=== PATIENT | female | born 1955 | race Caucasian/White ===

== ENCOUNTER 2016-07-02 21:55 | Emergency (ER) | payer OTHER ==
[~2016-07-02] VITALS: Ht 162.6 cm; Wt 87.0 kg
[~2016-07-02 21:55] MED LIST: ABIL5TAB6 PO; ALBU8I INH; DEPA250T; GLUCTAB PO; LEVO75TA3 PO; SERO50TA4 PO; ZITH250T PO
[2016-07-02 21:57] VITALS: BP 183/80; PULSE 84; RESP 14; TEMP 98; O2SAT 95
[2016-07-02] MEDS ORDERED: ACETAMINOPHEN/HYDROcodone 325 MG/5 MG TAB PO ONE (22:30)
--- NOTE | 2016-07-02 22:44 | PD ---
HPI Chief Complaint: Injury Time Seen by Provider: 22:42 Travel History International Travel<30 days: No Contact w/Intl Traveler<30days: No Traveled to known affect area: No History of Present Illness HPI 60-year-old white female presents emergent department with complains of right ankle pain. She states that she had an inversion injury prior to arrival. Pain is moderate. Worse with weightbearing. Some relief with elevation. No injury to her head, neck or back. No numbness, tingling or weakness. PFSH Past Medical History Asthma: Yes Bipolar Disorder: Yes Anxiety: Yes Depression: Yes Cancer: Yes (THYROID) Cardiovascular Problems: Yes (HTN) High Cholesterol: Yes COPD: Yes Diabetes: Yes Diminished Hearing: No Gastrointestinal Disorders: Yes Hypertension: Yes Musculoskeletal: No Neurologic: No Respiratory: Yes (BRONCHITIS) Thyroid Disease: Yes PNEUMOCCOCAL Vaccine (Year): 2 Menopausal: Yes Past Surgical History Abdominal Surgery: No Cardiac Surgery: No Ear Surgery: No Endocrine Surgery: Yes (PARTIAL THYROIDECTOMY) Eye Surgery: No Genitourinary Surgery: No Gynecologic Surgery: No Oral Surgery: No Thoracic Surgery: No Tonsillectomy: Yes Other Surgery: Yes (BX RIGHT BREAST NEG) Social History Alcohol Use: Yes Tobacco Use: No Substance Use: No (Hx ETOH Abuse - Sober for approx 32 yrs) Allergies-Medications (Allergen,Severity, Reaction): Coded Allergies: Codeine (Verified Allergy, Severe, STOMACH PROBLEMS, 07/02/16) Uncoded Allergies: ALL NARCOTICS (Allergy, Unknown, ADDICTION, 12/30/09) PATIENT STATES, " I DO NOT LIKE TO TAKE THEM" Reported Meds & Prescriptions Reported Meds & Active Scripts Active Ventolin Hfa (Albuterol Sulfate) 8 Gm Aero 2 Puff INH Q6 PRN * SHAKE WELL BEFORE USE * Zithromax Z-Robbin (Azithromycin) 250 Mg Tab 250 Mg PO DIRECTED 5 Days 500 MG (2 TABLETS) PO ON DAY 1, THEN 250 MG (1 TABLET) PO ON DAYS 2 TO 5. Metformin (Metformin HCl) 500 Mg Tab 500 Mg PO DAILY Levothyroxine 75 mcg (Levothyroxine Sodium) 75 Mcg Tab 75 Mcg PO DAILY Reported Seroquel XR 50 mg (Quetiapine Fumarate) 50 Mg Tab 50 Mg PO HS Abilify 5 mg (Aripiprazole) 5 Mg Tab 10 Mg PO DAILY Depakote (Divalproex Sodium) 250 Mg Caroline 50 Mg HS Review of Systems Except as stated in HPI: all other systems reviewed are Neg Physical Exam Narrative GENERAL: This is a well-nourished, well-developed patient, in no apparent distress. SKIN: No rashes, ecchymoses or lesions. Warm and dry. HEAD: Atraumatic. Normocephalic. EYES: PERRL, EOMI, no discharge or injection. No scleral icterus. EARS: Clear NOSE: Nasal turbinates appear normal. THROAT: Mucosa pink and moist. Airway patent. NECK: Trachea midline. supple, moves head freely. LUNGS: Clear to auscultation. CV: Regular in rhythm. ABDOMEN: Soft nontender. EXT: No clubbing cyanosis. Examination the right lower extremity reveals pain over the lateral malleolus with mild to moderate swelling. No pain in the Achilles, heel, medial malleolus or distal forefoot. The skin is intact. No pain in the knee or hip. Left lower extremity as well as upper extremities are unremarkable for acute trauma Data Data Last Documented VS Vital Signs Date Time Temp Pulse Resp B/P Pulse Ox O2 Delivery O2 Flow Rate FiO2 07/02/16 21:57 98.0 84 14 183/80 95 Room Air Orders Ankle, Complete ([id number]) (07/02/16 22:28) Ice/Cold Pack (07/02/16 22:28) Acetamin-Hydrocod 325-5 Mg ([place] 5-325 (07/02/16 22:30) MDM Medical Decision Making Medical Screen Exam Complete: Yes Emergency Medical Condition: Yes Medical Record Reviewed: Yes Interpretation(s) Right ankle: Negative for acute fracture. Positive soft tissue swelling. Differential Diagnosis MDM: High Differential diagnoses: Fracture, sprain, strain, dislocation, contusion, neurovascular injury Narrative Course X-ray of the right ankle negative for fracture. Patient given Rogelio wrap and crutches. He is offered Lortab 5 mg by mouth for pain. This of right ankle sprain Diagnosis Primary Impression: Right ankle sprain Qualified Code: S93.421A - Sprain of deltoid ligament of right ankle, initial encounter Patient Instructions: General Instructions Additional Instructions: Rest. Elevation. Ice packs for the next 3 days. Rogelio wrap and crutches. No weight-bearing and then progress to weight-bearing as tolerated. 3 Advil 3 times a day. Follow-up with an orthopedist or your doctor in one week. Return to the ER if any problems Med/Other Pt SpecificInfo: Prescription(s) given Disposition: 01 DISCHARGE HOME Condition: Stable Zia Xiong Jul 02, 2016 22:44
--- NOTE | 2016-07-02 23:04 | RADRPT ---
EXAM DATE/TIME: 07/02/2016 22:58 [facility] COMPARISON: No previous studies available for comparison. INDICATIONS : Pain from fall. MEDICAL HISTORY : None. SURGICAL HISTORY : None. ENCOUNTER: Initial ACUITY: 1 day PAIN SCORE: 5/10 LOCATION: Right ankle. FINDINGS: There is soft tissue swelling involving the lateral malleolus. There are questionable avulsion fractu res involving the lateral aspect of the right midfoot either involving the lateral talus or calcaneus . Clinical correlation is recommended. Dedicated foot films may be helpful for further evaluation. Th e ankle mortise is intact there is the distal fibula and tibia are intact. CONCLUSION: Questionable avulsion fractures involving the lateral aspect of the right midfoot either involving th e lateral talus or calcaneus. Clinical correlation is recommended. Dedicated foot films may be helpfu l for further evaluation. Soft tissue swelling involving the lateral malleolus. Bassem Falcon MD on July 02, 2016 at 22:58 Board Certified Radiologist. This report was verified electronically.
== END 2016-07-02 23:29 | disposition home or self-care (01) ==
LOC: NETRI 21:55
DX: S93.401A Sprain of unspecified ligament of right ankle, initial encounter (principal); I10 Essential (primary) hypertension; E11.9 Type 2 diabetes mellitus without complications; J45.909 Unspecified asthma, uncomplicated; X50.1XXA Overexertion from prolonged static or awkward postures, initial encounter
CPT/HCPCS: 73610; 99283; E0113

== ENCOUNTER 2017-09-16 21:59 | Emergency (ER) | payer SELFPAY ==
[~2017-09-16] VITALS: Ht 160 cm; Wt 90.1 kg
[2017-09-16 22:03] VITALS: BP 111/58; PULSE 88; RESP 18; TEMP 98.1; O2SAT 18
[2017-09-16] MEDS ORDERED: METR-1 PO (22:42)
--- NOTE | 2017-09-16 22:42 | PD ---
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 She was unable to retrieve them. She came to the emergency department. She denies any abdominal pain, fevers or chills and she is not sexually active. PFSH Past Medical History Asthma: Yes Bipolar Disorder: Yes Anxiety: Yes Depression: Yes Cancer: Yes (THYROID) Cardiovascular Problems: Yes (HTN) High Cholesterol: Yes COPD: Yes Diminished Hearing: No Gastrointestinal Disorders: Yes Hypertension: Yes Musculoskeletal: No Neurologic: No Respiratory: Yes (BRONCHITIS) Thyroid Disease: Yes Tetanus Vaccination: Unknown PNEUMOCCOCAL Vaccine (Year): 2 ?: Not Menopausal: Yes : 0 Past Surgical History Abdominal Surgery: No Cardiac Surgery: No Ear Surgery: No Endocrine Surgery: Yes (PARTIAL THYROIDECTOMY) Eye Surgery: No Genitourinary Surgery: No Gynecologic Surgery: No Oral Surgery: No Thoracic Surgery: No Tonsillectomy: Yes Other Surgery: Yes (BX RIGHT BREAST NEG) Social History Alcohol Use: No (quit 34 yrs ago) Tobacco Use: No Substance Use: No (HX ETOH-34 YRS AGO) Allergies-Medications (Allergen,Severity, Reaction): Coded Allergies: codeine (Unverified Allergy, Severe, STOMACH PROBLEMS, 09/16/17) Uncoded Allergies: ALL NARCOTICS (Allergy, Unknown, ADDICTION, 12/30/09) PATIENT STATES, " I DO NOT LIKE TO TAKE THEM" Reported Meds & Prescriptions Reported Meds & Active Scripts Active Ventolin Hfa (Albuterol Sulfate) 8 Gm Aero 2 Puff INH Q6 PRN * SHAKE WELL BEFORE USE * Zithromax Z-Robbin (Azithromycin) 250 Mg Tab 250 Mg PO DIRECTED 5 Days 500 MG (2 TABLETS) PO ON DAY 1, THEN 250 MG (1 TABLET) PO ON DAYS 2 TO 5. Metformin (Metformin HCl) 500 Mg Tab 500 Mg PO DAILY Levothyroxine 75 mcg (Levothyroxine Sodium) 75 Mcg Tab 75 Mcg PO DAILY Reported Seroquel XR 50 mg (Quetiapine Fumarate) 50 Mg Tab 50 Mg PO HS Abilify 5 mg (Aripiprazole) 5 Mg Tab 10 Mg PO DAILY Depakote (Divalproex Sodium) 250 Mg Caroline 50 Mg HS Review of Systems General / Constitutional: No: Fever, Chills Cardiovascular: No: Chest Pain or Discomfort Respiratory: No: Shortness of Breath Physical Exam Narrative GENERAL: Well-appearing, no acute distress, nontoxic SKIN: Warm and dry. HEAD: Atraumatic. Normocephalic. ENT: No nasal bleeding or discharge. Moist mucous membranes MUSCULOSKELETAL: No obvious deformities. CHORUS DANCER: Scant thin rich discharge, two cotton balls retrieved from the vault NEUROLOGICAL: Awake and alert. Moving all extremities. PSYCHIATRIC: Appropriate mood and affect; insight and judgment normal. Data Data Last Documented VS Vital Signs Date Time Temp Pulse Resp B/P (MAP) Pulse Ox O2 Delivery O2 Flow Rate FiO2 09/16/17 22:27 20 09/16/17 22:03 98.1 88 111/58 (75) 18 MDM Medical Decision Making Medical Screen Exam Complete: Yes Emergency Medical Condition: Yes Differential Diagnosis Retained foreign body, bacterial vaginosis Narrative Course This is a 61-year-old female who presents to the emergency department having had to cotton balls were obtained in her vagina. They were removed. Patient tolerated the procedure well. Patient was initiated on Flagyl for clinical bacterial vaginosis per Diagnosis Primary Impression: Retained foreign body Additional Impression: Bacterial vaginosis Patient Instructions: General Instructions Additional Instructions: If you develop severe or worsening abdominal pain, fever>100.4, persistent vomiting or inability to eat or drink return to the emergency department immediately. Med/Other Pt SpecificInfo: Prescription(s) given Scripts Metronidazole (Flagyl) 500 Mg Tab 500 MG PO BID for Infection for 7 Days, #14 TAB 0 Refills Prov: Florence Yung MD 09/16/17 Disposition: 01 DISCHARGE HOME Condition: Stable Florence Yung MD Sep 16, 2017 22:42
== END 2017-09-16 23:08 | disposition home or self-care (01) ==
LOC: PHED 21:59
DX: T19.2XXA Foreign body in vulva and vagina, initial encounter (principal); N76.0 Acute vaginitis; B96.89 Other specified bacterial agents as the cause of diseases classified elsewhere; E78.00 Pure hypercholesterolemia, unspecified; F31.9 Bipolar disorder, unspecified; F41.9 Anxiety disorder, unspecified; I10 Essential (primary) hypertension; J44.9 Chronic obstructive pulmonary disease, unspecified; E07.9 Disorder of thyroid, unspecified
CPT/HCPCS: 99283